=== PATIENT | female | born 1930 | race Caucasian/White ===

== ENCOUNTER 2017-02-21 10:48 | Emergency (ER) | payer SELFPAY ==
[2017-02-21 11:08] VITALS: BP 134/78; PULSE 53; RESP 16; TEMP 97.8; O2SAT 95
--- NOTE | 2017-02-21 12:11 | UCPHY ---
H & P Time Seen by Provider: 02/21/17 12:00 Patient Type: Established HPI/ROS: Chief complaint. Left wrist injury HPI. 86-year-old female trip and fall yesterday sustaining FOOSH injury to her left wrist. She has pain with movement. Previous fracture to the left wrist. She is right handed. Denies any other injuries. ROS Constitutional. no fever/chills, no weakness Eyes. no problems with vision ENT. no sore throat, no nasal drainage Cardiovascular. no chest pain Respiratory. no shortness of breath, no cough Abdominal. no abdominal pain, no nausea/vomiting, no diarrhea . no problems urinating MS. Left wrist pain Skin. no rash Lymph. no swollen glands Neuro. no headache, no dizziness, no difficulty walking or with speech Past Medical/Surgical History: Alzheimer's Social History: , nonsmoker, no alcohol Smoking Status: Never smoked Physical Exam: General Appearance: Alert pleasant well-developed female mild distress vital signs stable Eyes:[ Pupils equal and round no pallor or injection]. ENT,[ Mouth: Mucous membranes are moist.] Respiratory: [There are no retractions, lungs are clear to auscultation.] Cardiovascular:[ Regular rate and rhythm.] Gastrointestinal: [ Abdomen is soft and nontender, no masses, bowel sounds normal.] Neurological: [Awake and alert, sensory and motor exams grossly normal.] Skin:[ Warm and dry, no rashes.] Musculoskeletal: [Neck is supple nontender.] Extremities tender to palpation over the distal ulna. No obvious swelling or deformity. Good range of motion Psychiatric:[ Patient is oriented X 3, there is no agitation.] Constitutional: Initial Vital Signs Temperature (C) 36.6 C 02/21/17 11:05 Heart Rate 53 L 02/21/17 11:05 Respiratory Rate 16 02/21/17 11:05 Blood Pressure 134/78 H 02/21/17 11:05 O2 Sat (%) 95 02/21/17 11:05 O2 Delivery Mode Room Air Allergies/Adverse Reactions: No Known Allergies Allergy (Unverified 02/21/17 11:03) Home Medications: Medication Instructions Recorded ESCITALOPRAM OXALATE [LEXAPRO] 12/01/11 Axona 02/21/17 Namenda 10 mg 02/21/17 MDM/Departure - MDM Diagnostics: Imaging Impressions Wrist X-Ray 02/21/17 11:08 Impression: 1. Degenerative arthritis. 2. Chondrocalcinosis. 3. No fracture or dislocation. Left wrist x-ray is reviewed and interpreted by me as no fracture dislocation Procedures: Velcro left wrist splint. Post splint application shows good anatomic position and distal motor vascular sensitivity to be intact ED Course/Re-evaluation: Patient remained stable. The patient, her daughter, and I discussed imaging study results, treatment plan including criteria for return importance of follow -up further evaluation. They expressed understanding and agreement Differential Diagnosis: I considered fracture, dislocation, sprain. X-ray is normal. I believe this is a sprain - Depart Disposition: Home, Routine, Self-Care Clinical Impression: Left wrist sprain Qualifiers: Encounter type: initial encounter Qualified Code(s): S63.502A - Unspecified sprain of left wrist, initial encounter Condition: Good Instructions: Wrist Sprain (ED) Additional Instructions: Ice to sore area next 24 hours. Splint on for 1 week. For continuing pain follow up with Dr. charlotte dang. Return sooner for worsening symptoms. Tylenol as needed for discomfort Referrals: Pebbles Gallegos MD [Primary Care Provider] - 5-7 days, if not improved - PQRS PQRS Measurement: 134: Depression screening and followup, PRIME MD-PHQ2 (12 years and older) Over the last 2 weeks, how often have you been bothered by any of the following problems? 1. Feeling down, depressed, or hopeless? 2. Little interest or pleasure in doing things? Patient answered no to both 1 and 2 130: Documentation of medications. Reviewed all patient medications, doses, route and frequency. 226: Do you smoke? No. 47: 65 and older: Advanced care planning. Patient has advanced directive.
== END 2017-02-21 12:16 | disposition home or self-care (01) ==
LOC: CED 10:48
DX: S63.502A Unspecified sprain of left wrist, initial encounter (principal); W19.XXXA Unspecified fall, initial encounter; G30.9 Alzheimer's disease, unspecified
CPT/HCPCS: 73110; G0463; L3908; 99214-PO